=== PATIENT | male | born 1930 | race Caucasian/White ===

== ENCOUNTER 2019-09-06 06:28 | Inpatient (IN) | payer OTHER, MEDICARE ==
[2019-09-06 07:18] LABS: ALBUMIN 4.2 g/dL (3.5-5.0); ALKALINE PHOSPHATASE 96 U/L (38-126); ANION GAP 8 (5-19); ASPARTATE AMINO TRANSFERASE 34 U/L (17-59); BILIRUBIN,DIRECT 0.1 mg/dL (0.0-0.4); BILIRUBIN,TOTAL 0.4 mg/dL (0.2-1.3); BLOOD UREA NITROGEN 51 mg/dL (7-20); CALCIUM 9.1 mg/dL (8.4-10.2); CARBON DIOXIDE 25 mmol/L (22-30); CHLORIDE 108 mmol/L (98-107); GLUCOSE 104 mg/dL (75-110); POTASSIUM 5.2 mmol/L (3.6-5.0); TOTAL PROTEIN 7.6 g/dL (6.3-8.2)
[2019-09-06 07:26] LABS: ABSOLUTE EOSINOPHILS # (AUTO) 0.4 10^3/uL (0.0-0.6); ABSOLUTE MONOCYTES (AUTO) 0.4 10^3/uL (0.1-1.4); ABSOLUTE NEUT (AUTO) 4.4 10^3/uL (1.7-8.2); BASOPHILS % (AUTO) 0.7 % (0-2); EOSINOPHILS % (AUTO) 5.6 % (0-6); HEMATOCRIT 35.9 % (37.9-51.0); LYMPHOCYTES % (AUTO) 27.5 % (13-45); MEAN CORPUSCULAR HEMOGLOBIN 34.4 pg (27.0-33.4); MEAN CORPUSCULAR HGB CONC 33.5 g/dL (32.0-36.0); MEAN CORPUSCULAR VOLUME 103 fl (80-97); MONOCYTES % (AUTO) 5.3 % (3-13); PLATELET COUNT 213 10^3/uL (150-450); RED CELL DISTRIBUTION WIDTH 15.4 % (11.5-14.0); SEGMENTED NEUTROPHILS % (AUTO) 60.9 % (42-78); TOTAL CELLS COUNTED % (AUTO) 100 %; WHITE BLOOD COUNT 7.3 10^3/uL (4.0-10.5)
[2019-09-06 08:06] LABS: PARTIAL THROMBOPLASTIN TIME 32.2 SEC (23.5-35.8); PROTHROMBIN TIME 13.2 SEC (11.4-15.4)
[2019-09-06 08:16] LABS: VENOUS BLOOD BASE EXCESS -2.3 mmol/L; VENOUS BLOOD HCO3 24.9 mmol/L (20-32); VENOUS BLOOD PCO2 53.3 mmHg (35-63); VENOUS BLOOD PH 7.29 (7.30-7.42)
--- NOTE | 2019-09-06 08:17 | RADIOLOGY REPORT (SQ) ---
EXAM DESCRIPTION: CHEST SINGLE VIEW COMPLETED DATE/TIME: 09/06/2019 7:11 am REASON FOR STUDY: sob COMPARISON: None. EXAM PARAMETERS: NUMBER OF VIEWS: One view. TECHNIQUE: Single frontal radiographic view of the chest acquired. RADIATION DOSE: NA LIMITATIONS: None. FINDINGS: LUNGS AND PLEURA: Bibasilar mild parenchymal densities may be on the basis of edema or in filtrate. No pneumothorax. MEDIASTINUM AND HILAR STRUCTURES: No masses. Contour normal. HEART AND VASCULAR STRUCTURES: Cardiomegaly. Mild pulmonary vascular congestion. BONES: No acute findings. HARDWARE: None in the chest. OTHER: No other significant finding. IMPRESSION: 1. Cardiomegaly. Mild pulmonary vascular congestion. 2. Mild prominence of the interstitial markings at lung bases may represent edema or infiltrate. TECHNICAL DOCUMENTATION: JOB ID: [id number] 2010 [employer]- All Rights Reserved Reading location - IP/workstation name: [email or web address]
[2019-09-06 08:33] LABS: TROPONIN I 0.082 ng/mL
[2019-09-06] MEDS ORDERED: FUROSEMIDE INJ/PF 40 MG/4 ML SDV IV ONE (08:36)
[2019-09-06 11:23] LABS: APPEARANCE,URINE CLEAR; BILIRUBIN,URINE NEGATIVE (NEGATIVE); COLOR,URINE YELLOW; GLUCOSE, URINE NEGATIVE (NEGATIVE); KETONES,URINE NEGATIVE (NEGATIVE); LEUKOCYTE ESTERASE,URINE NEGATIVE (NEGATIVE); NITRITE,URINE NEGATIVE (NEGATIVE); PROTEIN,URINE NEGATIVE (NEGATIVE); UROBILINOGEN,URINE NEGATIVE mg/dL (<2.0)
[2019-09-06] MEDS: HEPARIN SOD (PORCINE) 5,000 UNIT/ML 1 ML VIAL SUBCUT SCH ×2 (14:36→22:06)
--- NOTE | 2019-09-06 17:19 | ER Document Report ---
Entered by MI BOSTON SCRIBE 09/06/19 0705 Acting as scribe for:DINO BRENNER MD ED General - General Chief Complaint: Respiratory Distress Stated Complaint: BREATHING DIFFICULTY Time Seen by Provider: 09/06/19 06:41 Information source: Patient Notes: 88-year-old male who is hearing impaired presents to the emergency department via EMS complaining of respiratory distress that began this morning. Patient stated that when he went to sleep last night he was feeling okay. Patient reported that when he went to push himself up from the recliner this morning, this action required more effort than usual and he noticed that he was not breathing properly. Patient stated that he could not talk. Patient's relative stated that when she arrived patient was wheezing. Patient reports yellow sputum. Patient denies chest pain, nausea, fever and chills. EMS reports signs of respiratory distress upon arrival. EMS reported wheezing, pale color and tripod position. 2 doses of Duoneb were given with a CPAP prior to arrival. Patient's relative stated that patient is talking much better and is sounding a lot better at the ED. TRAVEL OUTSIDE OF THE [place] IN LAST 30 DAYS: No - Related Data Allergies/Adverse Reactions: lorazepam [From Ativan] Adverse Reaction (Mild, Verified 09/06/19 06:49) Confusion Irritability Past Medical History - General Information source: Patient - Social History Smoking Status: Never Smoker Cigarette use (# per day): No Chew tobacco use (# tins/day): No Frequency of alcohol use: None Drug Abuse: None Family History: Reviewed & Not Pertinent Patient has suicidal ideation: No Patient has homicidal ideation: No - Past Medical History Cardiac Medical History: Reports: Hx Atrial Fibrillation, Hx Congestive Heart Failure, Hx Coronary Artery Disease, Hx DVT, Hx Heart Attack, Hx Hypercholesterolemia, Hx Hypertension, Other - PAD Neurological Medical History: Reports: Other - TGA Endocrine Medical History: Reports: Hx Diabetes Mellitus Type 2 Psychiatric Medical History: Reports: Hx Depression Past Surgical History: Reports: Hx Appendectomy, Hx Orthopedic Surgery - cervical disk. Back X3 Review of Systems - Review of Systems Constitutional: See HPI. denies: Chills, Fever EENT: No symptoms reported Cardiovascular: See HPI. denies: Chest pain Respiratory: See HPI, Short of breath, Sputum - yellow, Wheezing Gastrointestinal: See HPI. denies: Nausea Genitourinary: No symptoms reported Male Genitourinary: No symptoms reported Musculoskeletal: No symptoms reported Skin: See HPI, Change in color - Pale Hematologic/Lymphatic: No symptoms reported Neurological/Psychological: No symptoms reported -: Yes All other systems reviewed and negative Physical Exam - Vital signs Vitals: Temp Resp BP Pulse Ox 94.6 F L 20 142/87 H 100 09/06/19 06:30 09/06/19 06:30 09/06/19 06:30 09/06/19 06:30 - Notes Notes: Physical Exam: General: Alert, appears well. Patient is wearing a nasal cannula. HEENT: Normocephalic. Atraumatic. PERRL. Extraocular movements intact. Oropharynx clear. Neck: Supple. Non-tender. Respiratory: No respiratory distress. Bibasilar rales in base. Cardiovascular: Regular rate and rhythm. Abdominal: Normal Inspection. Non-tender. No distension. Normal Bowel Sounds. Back: No gross abnormalities. Extremities: Moves all four extremities. Upper extremities: Normal inspection. Normal ROM. Lower extremities: Erythema in RLE greater than LLE. Bilateral edema. Normal ROM. Neurological: Normal cognition. AAOx4. Normal speech. Psychological: Normal affect. Normal Mood. Skin: Warm. Dry. Normal color. Course - Re-evaluation Re-evalutation: 09/06/19 17:16 Patient with respiratory distress and congestive heart failure on presentation. Patient was treated prior to arrival by EMS in route patient was placed on CPAP given 2 DuoNeb treatments and oxygenation. Patient also received IV Solu-Medrol 125 mg by the time of arrival patient was resting much more comfortable not showing signs of tachypnea and sats were in the normal range. CPAP was decelerated to the nasal cannula. - Vital Signs Vital signs: Temp Pulse Resp BP Pulse Ox 97.6 F 57 L 16 120/59 L 94 09/06/19 12:00 09/06/19 12:00 09/06/19 12:00 09/06/19 12:00 09/06/19 12:00 - Laboratory Result Diagrams: 09/06/19 06:30 09/06/19 06:30 Laboratory results interpreted by me: 09/06/19 09/06/19 09/06/19 06:30 06:30 06:30 RBC 3.50 L Hgb 12.0 L Hct 35.9 L MCV 103 H MCH 34.4 H RDW 15.4 H VBG pH Potassium 5.2 H Chloride 108 H BUN 51 H Creatinine 1.67 H Est GFR ( Amer) 47 L Est GFR (MDRD) Non-Af 39 L NT-Pro-B Natriuret Pep 2920 H 09/06/19 07:55 RBC Hgb Hct MCV MCH RDW VBG pH 7.29 L Potassium Chloride BUN Creatinine Est GFR ( Amer) Est GFR (MDRD) Non-Af NT-Pro-B Natriuret Pep Troponin level came back mildly elevated at 0.[address]-T changes on EKG. Patient denies chest pain. Perhaps her troponin leak is due to the congestive heart failure state. - Diagnostic Test Radiology reviewed: Image reviewed, Reports reviewed Radiology results interpreted by me: 09/06/19 17:17 Chest x-ray showed cardiomegaly the patient has chosen to leave the facility against medical advice. The relevant issues have been reviewed and discussed with the patient and family at the bedside. At the time of this assessment there is no indication for involuntary commitment. The patient is alert, oriented, and able to express clearly their reasoning for not wanting to remain in the emergency department for further treatment. The patient is not clinically psychotic, intoxicated, and denies and suicidal ideation. Differential or suspected diagnoses based on medical screening exam: . The patient is aware of the concerning diagnoses and acknowledges understanding of the reasons for the following recommendations: The following recommendations/services were offered and refused: The following risks were explained: , permanent disability, loss of function Clinical impression: Patient is competent to make decisions regarding the medical that is being offered. Vascular congestive markings no acute infiltrate findings consistent with CHF. - EKG Interpretation by Me Additional EKG results interpreted by me: 09/06/19 17:17 12-lead EKG done at 652 shows atrial fibrillation with a controlled ventricular response at 82 with a left bundle branch block again no acute change from prior EKG. Discharge - Discharge Clinical Impression: Congestive heart failure, Chronic a-fib, Left bundle branch block, Coronary artery disease Condition: Fair Disposition: ADMITTED INPATIENT Admitting Provider: James (Hospitalist) Unit Admitted: IMCU I personally performed the services described in the documentation, reviewed and edited the documentation which was dictated to the scribe in my presence, and it accurately records my words and actions.
--- NOTE | 2019-09-06 17:37 | PDOC H&P ---
History of Present Illness Admission Date/PCP: 09/06/19 10:30 MICA MENDEZ History of Present Illness: MARIBETH INGRAM is a 88 year old male with multiple medical comorbidities including aortic stenosis, chronic atrial fibrillation, and heart failure with preserved ejection fraction and mild pulmonary hypertension, last echocardiogram here was in 2017. He called EMS early this morning because of shortness of breath. He said he sleeps in his recliner and got up to his wheelchair to go to the bathroom and said that he was too weak to make it to the bathroom. He said he was very short of breath and just pushing the wheelchair was difficult for him. EMS found him and he was in his kitchen having some trouble breathing. They gave him some steroids and some nebulizer treatments and brought him to the ER. They put him on some oxygen. Came to the ER and had a constellation of symptoms suggestive of heart failure. He had some lower extremity edema and some chest congestion. He felt like as long as he was able to rest his breathing was more comfortable. Past Medical History Cardiac Medical History: Reports: Atrial Fibrillation, Congestive Heart Failure, Coronary Artery Disease, DVT, Myocardial Infarction, Hyperlipidema, Hyperte nsion, Other - PAD Neurological Medical History: Reports: Other - TGA Endocrine Medical History: Reports: Diabetes Mellitus Type 2 Psychiatric Medical History: Reports: Depression Past Surgical History Past Surgical History: Reports: Appendectomy, Orthopedic Surgery - cervical disk. Back X3 Social History Smoking Status: Never Smoker Electronic Cigarette use?: No Family History Family History: Reviewed & Not Pertinent Parental Family History Reviewed: Yes Children Family History Reviewed: Yes Sibling(s) Family History Reviewed.: Yes Medication/Allergy Home Medications: Amiodarone HCl [Pacerone] 200 mg PO DAILY 09/06/19 Atorvastatin Calcium [Lipitor 10 mg Tablet] 10 mg PO QHS 09/06/19 Carvedilol [Coreg 3.125 mg Tablet] 3.125 mg PO BID 09/06/19 Furosemide [Lasix 20 mg Tablet] 20 mg PO DAILY 09/06/19 Levothyroxine Sodium [Levo-T] 175 mcg PO DAILY 09/06/19 Mirabegron [Myrbetriq] 50 mg PO DAILY 09/06/19 Ropinirole HCl [Requip 2 Mg Tablet] 2 mg PO TIDP PRN 09/06/19 Spironolactone [Aldactone 25 mg Tablet] 25 mg PO DAILY 09/06/19 Allergies/Adverse Reactions: lorazepam [From Ativan] Adverse Reaction (Mild, Verified 09/06/19 06:49) Confusion Irritability Review of Systems All systems: reviewed and no additional remarkable complaints except as stated - All systems were reviewed and were negative except as noted in the HPI Physical Exam Vital Signs: Temp Pulse Resp BP Pulse Ox 97.6 F 57 L 16 120/59 L 94 09/06/19 12:00 09/06/19 12:00 09/06/19 12:00 09/06/19 12:00 09/06/19 12:00 Intake & Output 09/05/19 09/06/19 09/07/19 06:59 06:59 06:59 Intake Total 480 Output Total 450 Balance 30 Weight 77.6 kg 73.7 kg General appearance: PRESENT: cooperative, disheveled, other - This is a very elderly, frail-appearing man who appears to have fairly aggressive kyphosis Head exam: PRESENT: atraumatic, normocephalic Eye exam: PRESENT: EOMI, PERRLA. ABSENT: conjunctival injection, nystagmus, scleral icterus Ear exam: PRESENT: normal external ear exam Mouth exam: PRESENT: dry mucosa, neck supple Teeth exam: PRESENT: poor dentation Throat exam: ABSENT: post pharyngeal erythema Neck exam: PRESENT: full ROM. ABSENT: carotid bruit, JVD, lymphadenopathy, meningismus, tenderness, thyromegaly Respiratory exam: PRESENT: crackles - Bibasilar, symmetrical, unlabored. ABSENT: accessory muscle use, chest wall tenderness, prolonged expiratory phas, retraction, rhonchi, tachypnea, wheezes Cardiovascular exam: PRESENT: irregular rhythm, systolic murmur - 2 out of 6 systolic murmur loudest at the right upper sternal border Pulses: PRESENT: normal carotid pulses Vascular exam: PRESENT: normal capillary refill GI/Abdominal exam: PRESENT: normal bowel sounds. ABSENT: distended, guarding, rebound, soft, tenderness Extremities exam: PRESENT: pedal edema, +1 edema. ABSENT: clubbing Musculoskeletal exam: PRESENT: normal inspection. ABSENT: deformity Neurological exam: PRESENT: awake, oriented to person, oriented to place, oriented to situation, CN II-XII grossly intact, motor sensory deficit - Generalized motor weakness Psychiatric exam: PRESENT: flat affect Skin exam: PRESENT: dry, warm Results Laboratory Results: 09/06/19 06:30 09/06/19 06:30 09/06/19 09/06/19 09/06/19 06:30 06:30 06:30 WBC 7.3 RBC 3.50 L Hgb 12.0 L Hct 35.9 L MCV 103 H MCH 34.4 H MCHC 33.5 RDW 15.4 H Plt Count 213 Seg Neutrophils % 60.9 VBG pH VBG pCO2 VBG HCO3 VBG Base Excess Sodium 140.9 Potassium 5.2 H Chloride 108 H Carbon Dioxide 25 Anion Gap 8 BUN 51 H Creatinine 1.67 H Est GFR ( Amer) 47 L Glucose 104 Lactic Acid 1.0 Calcium 9.1 Total Bilirubin 0.4 AST 34 Alkaline Phosphatase 96 Total Protein 7.6 Albumin 4.2 Urine Color Urine Appearance Urine pH Ur Specific [place] Urine Protein Urine Glucose (UA) Urine Ketones Urine Blood Urine Nitrite Ur Leukocyte Esterase Urine WBC (Auto) Urine RBC (Auto) 09/06/19 09/06/19 07:55 09:50 WBC RBC Hgb Hct MCV MCH MCHC RDW Plt Count Seg Neutrophils % VBG pH 7.29 L VBG pCO2 53.3 VBG HCO3 24.9 VBG Base Excess -2.3 Sodium Potassium Chloride Carbon Dioxide Anion Gap BUN Creatinine Est GFR ( Amer) Glucose Lactic Acid Calcium Total Bilirubin AST Alkaline Phosphatase Total Protein Albumin Urine Color YELLOW Urine Appearance CLEAR Urine pH 6.0 Ur Specific [place] 1.010 Urine Protein NEGATIVE Urine Glucose (UA) NEGATIVE Urine Ketones NEGATIVE Urine Blood NEGATIVE Urine Nitrite NEGATIVE Ur Leukocyte Esterase NEGATIVE Urine WBC (Auto) 0 Urine RBC (Auto) 1 09/06/19 09/06/19 06:30 09:37 Troponin I 0.082 0.083 NT-Pro-B Natriuret Pep 2920 H Impressions: Chest X-Ray 09/06/19 06:50 IMPRESSION: 1. Cardiomegaly. Mild pulmonary vascular congestion. 2. Mild prominence of the interstitial markings at lung bases may represent edema or infiltrate. Assessment and Plan - Diagnosis (1) Congestive heart failure Qualifiers: Heart failure type: diastolic Heart failure chronicity: acute on chronic Qualified Code(s): I50.33 - Acute on chronic diastolic (congestive) heart failure Is this a current diagnosis for this admission?: Yes Plan: We will resume his home medications except for his Lasix which will be given to him IV. We will make sure he is medically optimized. Monitor his urine output and his respiratory status. (2) Chronic a-fib Is this a current diagnosis for this admission?: Yes Plan: We will continue his home rate control agents as well as his anticoagulation (3) Coronary artery disease Qualifiers: Coronary Disease-Associated Artery/Lesion type: [place] artery [place] vs. transplanted heart: [place] heart Associated angina: without angina Qualified Code(s): I25.10 - Atherosclerotic heart disease of [place] coronary artery without angina pectoris Is this a current diagnosis for this admission?: Yes Plan: We will continue his home medications - Time Time Spent with patient: 35 or more minutes - Inpatient Certification Based on my medical assessment, after consideration of the patient's comorbidities, presenting symptoms, or acuity I expect that the services needed warrant INPATIENT care.: Yes I certify that my determination is in accordance with my understanding of Medicare's requirements for reasonable and necessary INPATIENT services [42 CFR 412.3e].: Yes Medical Necessity: Significant Comorbidiites Make Outpatient Treatment Too Risky, Need Close Monitoring Due to Risk of Patient Decompensation, Need For Continuous Telemetry Monitoring
[2019-09-06] MEDS ORDERED: FUROSEMIDE INJ/PF 40 MG/4 ML SDV IV SCH (18:00)
[2019-09-06] MEDS: ROPINIROLE HCL 2 MG TABLET PO PRN (18:19)
[2019-09-06] MEDS: ATORVASTATIN CALCIUM 10 MG TABLET PO SCH (22:05)
[2019-09-06] MEDS: CARVEDILOL 3.125 MG TABLET PO SCH (22:06)
[2019-09-07] MEDS: ROPINIROLE HCL 2 MG TABLET PO PRN (01:04)
[2019-09-07 04:37] LABS: HEMATOCRIT 32.3 % (37.9-51.0); HEMOGLOBIN 11.2 g/dL (13.5-17.0); MEAN CORPUSCULAR HEMOGLOBIN 34.4 pg (27.0-33.4); MEAN CORPUSCULAR HGB CONC 34.5 g/dL (32.0-36.0); MEAN CORPUSCULAR VOLUME 100 fl (80-97); PLATELET COUNT 204 10^3/uL (150-450); RED BLOOD COUNT 3.24 10^6/uL (4.35-5.55); RED CELL DISTRIBUTION WIDTH 14.6 % (11.5-14.0)
[2019-09-07 04:59] LABS: ANION GAP 11 (5-19); BLOOD UREA NITROGEN 69 mg/dL (7-20); CALCIUM 8.8 mg/dL (8.4-10.2); CARBON DIOXIDE 25 mmol/L (22-30); CHLORIDE 102 mmol/L (98-107); GLUCOSE 133 mg/dL (75-110)
[2019-09-07 05:13] LABS: POTASSIUM 4.3 mmol/L (3.6-5.0)
[2019-09-07] MEDS: HEPARIN SOD (PORCINE) 5,000 UNIT/ML 1 ML VIAL SUBCUT SCH ×3 (05:50→22:04)
[2019-09-07] MEDS: CARVEDILOL 3.125 MG TABLET PO SCH ×2 (09:49→22:04)
[2019-09-07] MEDS: AMIODARONE HCL 200 MG TABLET PO SCH (09:49)
[2019-09-07] MEDS: SPIRONOLACTONE 25 MG TABLET PO SCH (09:49)
[2019-09-07] MEDS: LEVOTHYROXINE SODIUM 0.1 MG TABLET PO SCH (09:50)
[2019-09-07] MEDS: LEVOTHYROXINE SODIUM 0.075 MG TABLET PO SCH (09:50)
--- NOTE | 2019-09-07 09:58 | RADIOLOGY REPORT (SQ) ---
EXAM DESCRIPTION: CHEST SINGLE VIEW COMPLETED DATE/TIME: 09/07/2019 8:05 am REASON FOR STUDY: CHF COMPARISON: AP chest 09/06/2019 EXAM PARAMETERS: NUMBER OF VIEWS: One view. TECHNIQUE: Single frontal radiographic view of the chest acquired. RADIATION DOSE: NA LIMITATIONS: None. FINDINGS: LUNGS AND PLEURA: Raymond lines at both lung bases have improved. Chronic scarring left lung base. Scattered pleural calcifications. No pleural effusion or pneumotho rax. No dense consolidation worrisome for acute pneumonia MEDIASTINUM AND HILAR STRUCTURES: No masses. Contour normal. HEART AND VASCULAR STRUCTURES: Stable mild cardiomegaly BONES: No acute findings. HARDWARE: Lower cervical whole fusion hardware along the posterior elements OTHER: No other significant finding. IMPRESSION: Resolved interstitial edema TECHNICAL DOCUMENTATION: JOB ID: [id number] 2010 [employer]- All Rights Reserved Reading location - IP/workstation name: [email or web address]
[2019-09-07] MEDS ORDERED: (PENDING PHARMACY ID) (Mirabegron [Myrbetriq] 50 MG) PO SCH (10:00)
[2019-09-07] MEDS ORDERED: LEVOTHYROXINE SODIUM 175 MCG PO SCH (10:00)
--- NOTE | 2019-09-07 11:42 | EKG REPORT ---
SEVERITY:- ABNORMAL ECG - ATRIAL FIBRILLATION LEFT BUNDLE BRANCH BLOCK : Confirmed by: Marina Jefferson 07-Sep-2019 11:42:16
--- NOTE | 2019-09-07 17:59 | PDOC DISCHARGE SUMMARY ---
Impression - Admit/DC Date/PCP Admission Date/Primary Care Provider: 09/06/19 10:30 MICA MENDEZ Discharge Date: 09/07/19 - Discharge Diagnosis (1) Congestive heart failure Is this a current diagnosis for this admission?: Yes (2) Chronic a-fib Is this a current diagnosis for this admission?: Yes (3) Coronary artery disease Is this a current diagnosis for this admission?: Yes - Additional Information Resuscitation Status: Full Code Discharge Diet: Cardiac, Diabetic Discharge Activity: Activity As Tolerated, Balance Activity w/Rest, Weigh Daily Referrals: MICA MENDEZ MD [Primary Care Provider] - Follow up as needed Home Medications: Amiodarone HCl [Pacerone] 200 mg PO DAILY 09/06/19 Atorvastatin Calcium [Lipitor 10 mg Tablet] 10 mg PO QHS 09/06/19 Carvedilol [Coreg 3.125 mg Tablet] 3.125 mg PO BID 09/06/19 Furosemide [Lasix 20 mg Tablet] 20 mg PO DAILY 09/06/19 Levothyroxine Sodium [Levo-T] 175 mcg PO DAILY 09/06/19 Mirabegron [Myrbetriq] 50 mg PO DAILY 09/06/19 Ropinirole HCl [Requip 2 mg Tablet] 2 mg PO TIDP PRN 09/06/19 Spironolactone [Aldactone 25 mg Tablet] 25 mg PO DAILY 09/06/19 History of Present Illiness History of Present Illness: MARIBETH INGRAM is a 88 year old male with multiple medical comorbidities including aortic stenosis, chronic atrial fibrillation, and heart failure with preserved ejection fraction and mild pulmonary hypertension, last echocardiogram here was in 2017. He called EMS early this morning because of shortness of breath. He said he sleeps in his recliner and got up to his wheelchair to go to the bathroom and said that he was too weak to make it to the bathroom. He said he was very short of breath and just pushing the wheelchair was difficult for him. EMS found him and he was in his kitchen having some trouble breathing. They gave him some steroids and some nebulizer treatments and brought him to the ER. They put him on some oxygen. Came to the ER and had a constellation of symptoms suggestive of heart failure. He had some lower extremity edema and some chest congestion. He felt like as long as he was able to rest his breathing was more comfortable. Hospital Course Hospital Course: He responded quickly to IV Lasix. It turns out he was not taking his Lasix all the time at home because he did not want to have to get up to go urinate. He did not want to go to rehab but he agreed to go to home health with physical therapy. He will resume his home medications and he was advised to take his Lasix as directed. He verbalizes understanding. His labs and examination were reassuring and he was discharged in stable condition. Physical Exam Vital Signs: Temp Pulse Resp BP Pulse Ox 97.4 F 67 16 129/55 H 100 09/07/19 16:16 09/07/19 16:16 09/07/19 16:16 09/07/19 16:16 09/07/19 16:16 Intake & Output 09/06/19 09/07/19 09/08/19 06:59 06:59 06:59 Intake Total 480 Output Total 1075 Balance -595 Weight 77.6 kg 74.3 kg General appearance: PRESENT: cooperative, disheveled, other - This is a very elderly, frail-appearing man who appears to have fairly aggressive kyphosis Respiratory exam: PRESENT: Clear to auscultation bilaterally, symmetrical, un labored. ABSENT: accessory muscle use, crackles, chest wall tenderness, prolonged expiratory phas, retraction, rhonchi, tachypnea, wheezes Cardiovascular exam: PRESENT: irregular rhythm, systolic murmur - 2 out of 6 systolic murmur loudest at the right upper sternal border Pulses: PRESENT: normal carotid pulses Vascular exam: PRESENT: normal capillary refill GI/Abdominal exam: PRESENT: normal bowel sounds. ABSENT: distended, guarding, rebound, soft, tenderness Extremities exam: ABSENT: clubbing, edema Musculoskeletal exam: PRESENT: normal inspection. ABSENT: deformity Neurological exam: PRESENT: awake, oriented to person, oriented to place, oriented to situation, CN II-XII grossly intact, motor sensory deficit - Generalized motor weakness Psychiatric exam: PRESENT: flat affect Skin exam: PRESENT: dry, warm Results Laboratory Results: WBC 7.0 10^3/uL (4.0-10.5) 09/07/19 04:12 RBC 3.24 10^6/uL (4.35-5.55) L 09/07/19 04:12 Hgb 11.2 g/dL (13.5-17.0) L 09/07/19 04:12 Hct 32.3 % (37.9-51.0) L 09/07/19 04:12 MCV 100 fl (80-97) H 09/07/19 04:12 MCH 34.4 pg (27.0-33.4) H 09/07/19 04:12 MCHC 34.5 g/dL (32.0-36.0) 09/07/19 04:12 RDW 14.6 % (11.5-14.0) H 09/07/19 04:12 Plt Count 204 10^3/uL (150-450) 09/07/19 04:12 Lymph % (Auto) 27.5 % (13-45) 09/06/19 06:30 [place] % (Auto) 5.3 % (3-13) 09/06/19 06:30 Eos % (Auto) 5.6 % (0-6) 09/06/19 06:30 Baso % (Auto) 0.7 % (0-2) 09/06/19 06:30 Absolute Neuts (auto) 4.4 10^3/uL (1.7-8.2) 09/06/19 06:30 Absolute Lymphs (auto) 2.0 10^3/uL (0.5-4.7) 09/06/19 06:30 Absolute Monos (auto) 0.4 10^3/uL (0.1-1.4) 09/06/19 06:30 Absolute Eos (auto) 0.4 10^3/uL (0.0-0.6) 09/06/19 06:30 Absolute Basos (auto) 0.0 10^3/uL (0.0-0.2) 09/06/19 06:30 Seg Neutrophils % 60.9 % (42-78) 09/06/19 06:30 PT 13.2 SEC (11.4-15.4) 09/06/19 06:30 INR 1.00 09/06/19 06:30 APTT 32.2 SEC (23.5-35.8) 09/06/19 06:30 VBG pH 7.29 (7.30-7.42) L 09/06/19 07:55 VBG pCO2 53.3 mmHg (35-63) 09/06/19 07:55 VBG HCO3 24.9 mmol/L (20-32) 09/06/19 07:55 VBG Base Excess -2.3 mmol/L 09/06/19 07:55 Sodium 138.2 mmol/L (137-145) 09/07/19 04:12 Potassium 4.3 mmol/L (3.6-5.0) 09/07/19 04:12 Chloride 102 mmol/L (98-107) 09/07/19 04:12 Carbon Dioxide 25 mmol/L (22-30) 09/07/19 04:12 Anion Gap 11 (5-19) 09/07/19 04:12 BUN 69 mg/dL (7-20) H 09/07/19 04:12 Creatinine 2.19 mg/dL (0.52-1.25) H 09/07/19 04:12 Est GFR ( Amer) 34 (>60) L 09/07/19 04:12 Est GFR (MDRD) Non-Af 28 (>60) L 09/07/19 04:12 Glucose 133 mg/dL (75-110) H 09/07/19 04:12 Lactic Acid 1.0 mmol/L (0.7-2.1) 09/06/19 06:30 Calcium 8.8 mg/dL (8.4-10.2) 09/07/19 04:12 Total Bilirubin 0.4 mg/dL (0.2-1.3) 09/06/19 06:30 Direct Bilirubin 0.1 mg/dL (0.0-0.4) 09/06/19 06:30 Neonat Total Bilirubin Not Reportable 09/06/19 06:30 Neonat Direct Bilirubin Not Reportable 09/06/19 06:30 Neonat Indirect Bili Not Reportable 09/06/19 06:30 AST 34 U/L (17-59) 09/06/19 06:30 ALT 11 U/L (<50) 09/06/19 06:30 Alkaline Phosphatase 96 U/L (38-126) 09/06/19 06:30 Troponin I 0.083 ng/mL 09/06/19 09:37 NT-Pro-B Natriuret Pep 2920 pg/mL (<450) H 09/06/19 06:30 Total Protein 7.6 g/dL (6.3-8.2) 09/06/19 06:30 Albumin 4.2 g/dL (3.5-5.0) 09/06/19 06:30 Urine Color YELLOW 09/06/19 09:50 Urine Appearance CLEAR 09/06/19 09:50 Urine pH 6.0 (5.0-9.0) 09/06/19 09:50 Ur Specific [place] 1.010 09/06/19 09:50 Urine Protein NEGATIVE mg/dL (NEGATIVE) 09/06/19 09:50 Urine Glucose (UA) NEGATIVE mg/dL (NEGATIVE) 09/06/19 09:50 Urine Ketones NEGATIVE mg/dL (NEGATIVE) 09/06/19 09:50 Urine Blood NEGATIVE (NEGATIVE) 09/06/19 09:50 Urine Nitrite NEGATIVE (NEGATIVE) 09/06/19 09:50 Urine Bilirubin NEGATIVE (NEGATIVE) 09/06/19 09:50 Urine Urobilinogen NEGATIVE mg/dL (<2.0) 09/06/19 09:50 Ur Leukocyte Esterase NEGATIVE (NEGATIVE) 09/06/19 09:50 Urine WBC (Auto) 0 /HPF 09/06/19 09:50 Urine RBC (Auto) 1 /HPF 09/06/19 09:50 Urine Mucus (Auto) RARE /LPF 09/06/19 09:50 Urine Ascorbic Acid NEGATIVE (NEGATIVE) 09/06/19 09:50 09/06/19 09/06/19 06:30 09:37 Troponin I 0.082 0.083 NT-Pro-B Natriuret Pep 2920 H Impressions: Chest X-Ray 09/06/19 06:50 IMPRESSION: 1. Cardiomegaly. Mild pulmonary vascular congestion. 2. Mild prominence of the interstitial markings at lung bases may represent edema or infiltrate. Chest X-Ray 09/07/19 06:00 IMPRESSION: Resolved interstitial edema Plan Time Spent: Greater than 30 Minutes Stroke Is this a Stroke Patient?: No Acute Heart Failure - Is this a Heart Failure Patient?: Yes Documentation of LVEF assessment?: Yes LVEF < 40%?: No- if no continue to question #3 a) Discharged on ACEI?: Yes b) Discharges on ARB?: No-document contraindications - Discharged on FREDRICK inhibitor c) Discharged on ARNI?: No-Document Contraindications Reason(s) not discharged on ARNI: Impaired/worsening renal functions d) Discharged on evidence-based Beta maria eugenia(carvedilol, sustained release metoprolol succinate, or bisoprolol)?: Yes e) For LVEF <35%, discharged on Aldosterone antagonist?: N/A (LVEF > or = 35%) 3. Anticoagulant therapy for permanect/persistent/paraoxysmal Afib or Aflutter: Yes Follow-up Appointment scheduled within 7 days?: Yes
[2019-09-07] MEDS: ATORVASTATIN CALCIUM 10 MG TABLET PO SCH (22:04)
[2019-09-08] MEDS ORDERED: ROPINIROLE HCL 2 MG TABLET ONE (02:15)
[2019-09-08] MEDS: HEPARIN SOD (PORCINE) 5,000 UNIT/ML 1 ML VIAL SUBCUT SCH (05:22)
[2019-09-08 06:04] LABS: HEMOGLOBIN 11.1 g/dL (13.5-17.0); MEAN CORPUSCULAR HEMOGLOBIN 34.3 pg (27.0-33.4); MEAN CORPUSCULAR HGB CONC 34.7 g/dL (32.0-36.0); MEAN CORPUSCULAR VOLUME 99 fl (80-97); PLATELET COUNT 184 10^3/uL (150-450); RED BLOOD COUNT 3.23 10^6/uL (4.35-5.55); RED CELL DISTRIBUTION WIDTH 15.1 % (11.5-14.0); WHITE BLOOD COUNT 5.4 10^3/uL (4.0-10.5)
[2019-09-08 06:26] LABS: ANION GAP 9 (5-19); BLOOD UREA NITROGEN 64 mg/dL (7-20); CALCIUM 8.8 mg/dL (8.4-10.2); CARBON DIOXIDE 23 mmol/L (22-30); CHLORIDE 106 mmol/L (98-107); GLUCOSE 104 mg/dL (75-110); POTASSIUM 4.3 mmol/L (3.6-5.0)
[2019-09-08] MEDS: AMIODARONE HCL 200 MG TABLET PO SCH (09:23)
[2019-09-08] MEDS: SPIRONOLACTONE 25 MG TABLET PO SCH (09:23)
[2019-09-08] MEDS: LEVOTHYROXINE SODIUM 0.1 MG TABLET PO SCH (09:23)
[2019-09-08] MEDS: LEVOTHYROXINE SODIUM 0.075 MG TABLET PO SCH (09:23)
[2019-09-08] MEDS: CARVEDILOL 3.125 MG TABLET PO SCH (09:23)
[2019-09-08 11:54] VITALS: BP 120/59
--- NOTE | 2019-09-08 12:41 | CDI QUERY ---
CDI Query CDI Review: Dear CHHAYA, To better reflect your patients severity of illness, morbidity, and resource utilization Please LINK any condition to present on admission, if applicable. The terms probable, suspected, likely, possible or still to be ruled out may be used. If you agree, please add to the Progress Notes and Discharge Summary Query Clinical indicators PERMANENT A FIB? PERSISTENT A FIB? PAROXYSMAL A FIB? OTHER? CHRONIC A FIB Thank you, VINI [facility] Office [phone]
== END 2019-09-08 12:48 | disposition home health service (06) | DRG 291 ==
LOC: ER 06:28 → EDBD 06:28 → EH 10:30 → 3S 11:19
PROVIDERS: ADMIT Family Medicine; ATTEND Family Medicine
DX: I11.0 Hypertensive heart disease with heart failure (principal); J96.01 Acute respiratory failure with hypoxia; I48.20 Chronic atrial fibrillation, unspecified; I50.33 Acute on chronic diastolic (congestive) heart failure; I25.10 Atherosclerotic heart disease of native coronary artery without angina pectoris; I27.20 Pulmonary hypertension, unspecified; I35.0 Nonrheumatic aortic (valve) stenosis; E78.5 Hyperlipidemia, unspecified; E11.51 Type 2 diabetes mellitus with diabetic peripheral angiopathy without gangrene; F32.9 Major depressive disorder, single episode, unspecified; I44.7 Left bundle-branch block, unspecified; E78.00 Pure hypercholesterolemia, unspecified; I25.2 Old myocardial infarction; Z86.718 Personal history of other venous thrombosis and embolism; Z79.899 Other long term (current) drug therapy; Z88.8 Allergy status to other drugs, medicaments and biological substances
CPT/HCPCS: 36415; 71045; 80048; 80053; 81001; 82803; 83605; 83880; 84484; 85025; 85027; 85610; 85730; 87040; 93005; 93010; 96374; 99285; J1644; J1940